=== PATIENT | female | born 1970 | race Caucasian/White ===

== ENCOUNTER 2018-11-30 16:46 | Emergency (ER) | payer MEDICAID ==
[~2018-11-30] VITALS: Ht 160 cm; Wt 70.8 kg
[2018-11-30 16:50] VITALS: BP 144/77
--- NOTE | 2018-11-30 18:41 | NUR ---
pt to rm 10 with steady gait
--- NOTE | 2018-11-30 18:42 | NUR ---
48 yo f bib self w/ c/o 7/10 bl ear, throat, "all over head" headache and chills since yesterday. reports nausea, denies v/d. denies taking antipyretics. pt w/ flushed cheeks, temp 99.5. denies dizziness/cp/ [id number]. ambulatory steady gait. vss. nad. awaiting er md alonso.
--- NOTE | 2018-11-30 19:10 | NUR ---
Pt report given to HARSH Dick. Transfer of care at this time.
--- NOTE | 2018-11-30 19:31 | NUR ---
PT LAYING IN BED, RR EVEN AND UNLABORED. TEMP 99.5, VSS. REPORTS 5/10 BL EAR AND HEADACHE. ALL NEEDS MET AT THIS TIME.
--- NOTE | 2018-11-30 19:39 | NUR ---
Dr. Levin evaluating patient at bedside.
[2018-11-30] MEDS ORDERED: NACL 0.9% 1,000 ML IV ONE (19:55)
[2018-11-30] MEDS ORDERED: KETOROLAC 30 MG/ML VIAL IVP ONE (19:55)
[2018-11-30 20:14] LABS: BASOPHILS % (AUTO) 0.4 % (0.0-2.0); EOSINOPHILS % (AUTO) 0.2 % (0.0-4.0); HEMATOCRIT 40.3 % (36-48); HEMOGLOBIN 13.9 g/dL (12.0-16.0); LYMPHOCYTES # (AUTO) 1.3 K/uL (2.5-16.5); MEAN CORPUSCULAR HEMOGLOBIN 32 pg (27-31); MEAN CORPUSCULAR HGB CONC 35 g/dL (33-37); MEAN CORPUSCULAR VOLUME 91.1 fL (80-94); MONOCYTES # (AUTO) 0.8 K/uL (0.8-1.0); MONOCYTES % (AUTO) 9.9 % (1.7-9.3); NEUTROPHILS # (AUTO) 5.7 K/uL (1.8-7.7); NEUTROPHILS % (AUTO) 72.5 % (42.2-75.2); PLATELET COUNT (AUTO) 217 K/uL (140-450); RED BLOOD CELL COUNT(AUTO) 4.42 MIL/uL (4.20-5.40); WHITE BLOOD COUNT (AUTO) 7.9 K/uL (4.8-10.8)
--- NOTE | 2018-11-30 20:21 | NUR ---
PT TAKEN TO XRAY
[2018-11-30 20:23] LABS: ANION GAP 12.8 (8-16); CARBON DIOXIDE 25.8 mmol/L (21-32); CREATININE 0.8 mg/dL (0.6-1.3); POTASSIUM 3.6 mmol/L (3.5-5.1)
[2018-11-30 20:29] LABS: ALBUMIN 3.1 g/dL (3.4-5.0); TOTAL BILIRUBIN 0.9 mg/dL (0.0-1.0)
--- NOTE | 2018-11-30 20:34 | NUR ---
PT RETURN FROM XRAY
[2018-11-30 21:04] VITALS: BP 136/71
--- NOTE | 2018-11-30 21:04 | NUR ---
Patient discharged with v/s stable. Written and verbal after care instructions given and explained. Patient alert, oriented and verbalized understanding of instructions. Ambulatory with steady gait. All questions addressed prior to discharge. ID band removed. Patient advised to follow up with PMD. Rx of MINERAL OIL, LACTULOSE given. Patient educated on indication of medication including possible reaction and side effects. Opportunity to ask questions provided and answered.
== END 2018-11-30 21:04 | disposition home or self-care (01) ==
LOC: MED 16:46
DX: K59.00 Constipation, unspecified (principal); R50.9 Fever, unspecified; R51 Headache; H57.13 Ocular pain, bilateral
CPT/HCPCS: 36415; 74022; 80053; 85025; 96374; 99284; J1885; J7030

== ENCOUNTER 2019-01-13 18:04 | Emergency (ER) | payer MEDICAID ==
[~2019-01-13] VITALS: Ht 149.9 cm; Wt 71.2 kg
[2019-01-13 18:15] VITALS: BP 156/78
[2019-01-13] MEDS ORDERED: ACETAMINOPHEN EXTRA STRENGTH 500 MG TAB PO ONE (19:45)
[2019-01-13] MEDS ORDERED: cefTRIAXone 1,000 MG in LIDOCAINE MPF 1% - 5 mL VIAL 2.1 ML IM ONE (19:45)
--- NOTE | 2019-01-13 19:50 | NUR ---
BIB FAMILY. WITH C/O BUG BITE X2 DAYS ON LEFT LOWER LEG. QUARTER SIZED RAISED RED BUMP NOTED. PATIENT DENIES ANY OTHER SYMPTOMS AT THIS TIME. BED IN LOW LOCKED POSITION. STATES PAIN 08/13. FAMILY AT BEDSIDE.
[2019-01-13 20:01] VITALS: BP 156/78
--- NOTE | 2019-01-13 20:01 | NUR ---
Patient discharged with v/s stable. Written and verbal after care instructions given and explained. Patient alert, oriented and verbalized understanding of instructions. Ambulatory with steady gait. All questions addressed prior to discharge. ID band removed. Patient advised to follow up with PMD. Rx of bactrim, ibuprofen, keflex given. Patient educated on indication of medication including possible reaction and side effects. Opportunity to ask questions provided and answered.
== END 2019-01-13 20:01 | disposition home or self-care (01) ==
LOC: MED 18:04
DX: L03.115 Cellulitis of right lower limb (principal); R03.0 Elevated blood-pressure reading, without diagnosis of hypertension
CPT/HCPCS: 96372; 99283; J0696; J2001

== ENCOUNTER 2019-01-15 16:56 | Emergency (ER) | payer MEDICAID ==
[~2019-01-15] VITALS: Ht 142.2 cm; Wt 71.7 kg
[2019-01-15 17:02] VITALS: BP 147/76
--- NOTE | 2019-01-15 17:02 | NUR ---
Note undone in EDM - 01/15/19 at 1737 by [email or web address] 48 Y F BIB SELF C/O RIGHT LOWER LEG PAIN. PT STATES WAS SEEN IN ER 2 DAYS AGO AND WAS TREATED FOR A WOUND ON LATERAL ASPECT OF RIGHT CALF. PT STATES PAIN HAS WORSENED AND SWELLING HAS INCREASED. PAIN 10/10. TENDER AND HOT TO TOUCH. PT DENIES FEVER AND CHILLS. +REDNESS, +SWELLING, +YELLOW DISCHARGE FROM WOUND. PALPABLE PEDAL PULSES. +ROM. BED IS DOWN, LOCKED, BED RAIL X 1, ERMD NOTIFIED OF PATIENT STATUS. HX: DENIES RX: TRAMADOL, IBUPROFEN, KEFLEX, BACTRIM
--- NOTE | 2019-01-15 17:08 | NUR ---
VSS; PT AMB TO LOBBY ALONE
--- NOTE | 2019-01-15 17:20 | NUR ---
PT TO ER BED 11
--- NOTE | 2019-01-15 17:20 | NUR ---
48 Y F BIB SELF C/O RIGHT LOWER LEG PAIN. PT STATES WAS SEEN IN ER 2 DAYS AGO AND WAS TREATED FOR A WOUND ON LATERAL ASPECT OF RIGHT CALF. PT STATES PAIN HAS WORSENED AND SWELLING HAS INCREASED. PAIN 10/10. TENDER AND HOT TO TOUCH. PT DENIES FEVER AND CHILLS. +REDNESS, +SWELLING, +YELLOW DISCHARGE FROM WOUND. PALPABLE PEDAL PULSES. +ROM. BED IS DOWN, LOCKED, BED RAIL X 1, ERMD NOTIFIED OF PATIENT STATUS. HX: DENIES RX: TRAMADOL, IBUPROFEN, KEFLEX, BACTRIM
--- NOTE | 2019-01-15 17:34 | NUR ---
Patient being evaluated by DR ROSAS at bedside.
--- NOTE | 2019-01-15 17:41 | NUR ---
LAB AT BEDSIDE
--- NOTE | 2019-01-15 17:41 | NUR ---
US AT BEDSIDE.
[2019-01-15 17:53] LABS: BASOPHILS # (AUTO) 0.1 K/uL (0.00-0.22); BASOPHILS % (AUTO) 0.5 % (0.0-2.0); EOSINOPHILS # (AUTO) 0.1 K/uL (0-0.4); EOSINOPHILS % (AUTO) 0.6 % (0.0-4.0); HEMATOCRIT 38.8 % (36-48); HEMOGLOBIN 13.5 g/dL (12.0-16.0); LYMPHOCYTES # (AUTO) 2.1 K/uL (2.5-16.5); MEAN CORPUSCULAR HEMOGLOBIN 32 pg (27-31); MEAN CORPUSCULAR HGB CONC 35 g/dL (33-37); MEAN CORPUSCULAR VOLUME 90.8 fL (80-94); MONOCYTES # (AUTO) 0.9 K/uL (0.8-1.0); MONOCYTES % (AUTO) 9.1 % (1.7-9.3); NEUTROPHILS % (AUTO) 68.8 % (42.2-75.2); PLATELET COUNT (AUTO) 277 K/uL (140-450); RED BLOOD CELL COUNT(AUTO) 4.27 MIL/uL (4.20-5.40); RED CELL DISTRIBUTION WIDTH 11.8 % (11.6-13.7); WHITE BLOOD COUNT (AUTO) 10.2 K/uL (4.8-10.8)
[2019-01-15 18:06] LABS: ANION GAP 12.8 (8-16); CARBON DIOXIDE 27.1 mmol/L (21-32); CREATININE 0.8 mg/dL (0.6-1.3); POTASSIUM 3.9 mmol/L (3.5-5.1)
[2019-01-15 18:12] LABS: ALBUMIN 3.2 g/dL (3.4-5.0); TOTAL BILIRUBIN 0.7 mg/dL (0.0-1.0)
--- NOTE | 2019-01-15 18:46 | NUR ---
Patient being reevaluated by DR ROSAS at bedside.
--- NOTE | 2019-01-15 19:00 | NUR ---
RECEIVED REPORT BESIDE FROM HARSH ROSARIO.
--- NOTE | 2019-01-15 19:10 | NUR ---
APPLIED DRESSING TO R WOUND. PT TOLEREATED WELL. VSS.
[2019-01-15 19:13] VITALS: BP 135/72
--- NOTE | 2019-01-15 19:14 | NUR ---
Patient discharged with v/s stable. Written and verbal after care instructions given and explained. Patient alert, oriented and verbalized understanding of instructions. Ambulatory with steady gait. All questions addressed prior to discharge. ID band removed. Patient advised to follow up with PMD. Rx of PERCOCET given. Patient educated on indication of medication including possible reaction and side effects. Opportunity to ask questions provided and answered.
== END 2019-01-15 19:14 | disposition home or self-care (01) ==
LOC: MED 16:56
DX: L03.115 Cellulitis of right lower limb (principal)
CPT/HCPCS: 36415; 73590; 80053; 81002; 81025; 85025; 93971; 99284; Q0092